=== PATIENT | female | born 1965 | race African-American/Black ===

== ENCOUNTER 2025-02-20 16:12 | Inpatient (IN) | payer MEDICAID, OTHER ==
[~2025-02-20] VITALS: Ht 167.6 cm; Wt 97.8 kg
--- NOTE | 2025-02-20 16:49 | ED.PDOC ---
HPI Comments 59 y/o F, with no prior medical history presents to the ED for CC of hypertension. Patient states, she is coming from [facility] security office where they checked her blood pressure and relayed her to the ED for a further e valuation d/t hypertensive reading. Upon arrival to the ED, patient's blood pressure read at 251/137mmHg (R) and 265/127 (L) with a blood sugar reading of 474. Patient reports, symptoms of a generalized headache onset, this morning (02/20/15) which has since, resolved. Patient denies any cardiac history, blurred vision, disorientation, urinary frequency, or excessive thirst. No other symptoms or modifying factors present at this time. Chief Complaint: High Blood Pressure Time Seen by MD: 16:40 Primary Care Provider: NONE Reviewed Notes: Nurses Notes, Medications, Allergies Allergies: Coded Allergies: NO KNOWN ALLERGIES (Unverified , 02/20/25) Information Source: Patient Mode of Arrival: Ambulatory Severity: Moderate Timing: Minutes Duration: Since onset Prehospital treatment: None Cardiac Risk Factors: None PE Risk Factors: None History of: None Modifying Factors: Nothing Associated Signs and Symptoms: None Past Medical History PAST MEDICAL HISTORY: Denies Surgical History: Hysterectomy COMPLIANCE VICE PRESIDENT History: Denies all COMPLIANCE VICE PRESIDENT Hx Family History Family History: Unknown Social History Smoker: Non-Smoker Alcohol: Denies ETOH Use Drugs: Denies Drug Use Lives In: Home Constitutional: denies: chills, diaphoresis, fatigue, fever, malaise, sweats, weakness, others EENTM: denies: blurred vision, double vision, ear bleeding, ear discharge, ear drainage, ear pain, ear ringing, eye pain, eye redness, hearing loss, mouth pain, mouth swelling, nasal discharge, nose bleeding, nose congestion, nose pain, photophobia, tearing, throat pain, throat swelling, voice changes, others Respiratory: denies: cough, hemoptysis, orthopnea, SOB at rest, shortness of breath, SOB with excertion, stridor, wheezing, others Cardiovascular: denies: chest pain, dizzy spells, diaphoresis, Dyspnea on exertion, edema, irregular heart beat, left arm pain, lightheadedness, palpitations, PND, syncope, others Gastrointestinal: denies: abdomen distended, abdominal pain, blood streaked bowels, constipated, diarrhea, dysphagia, difficulty swallowing, hematemesis, melena, nausea, poor appetite, poor fluid intake, rectal bleeding, rectal pain, vomiting, others Genitourinary: denies: abnormal vagina bleeding, burning, dyspareunia, dysuria, flank pain, frequency, hematuria, incontinence, pain, , vagina discharge, urgency, others Neurological: reports: headache; denies: dizziness, fainting, left sided numbness, left sided weakness, numbness, paresthesia, pre-existing deficit, right sided numbness, right sided weakness, seizure, speech problems, tingling, tremors, weakness, others Musculoskeletal: denies: back pain, gout, joint pain, joint swelling, muscle pain, muscle stiffness, neck pain, others Integumetry: denies: bruises, change in color, change in hair/nails, dryness, laceration, lesions, lumps, rash, wounds, others Hematologic/Lymphatic: denies: anemia, blood clots, easy bleeding, easy bruising, swollen glands, others Endocrine: denies: excessive hunger, excessive sweating, excessive thirst, excessive urination, flushing, intolerance to cold, intolerance to heat, unexplained weight gain, unexplained weight loss, others Psychiatric: denies: anxiety, bipolar disorder, depression, hopeless, panic disorder, schizophrenia, sleepless, suicidal, others All Other Systems: Reviewed and Negative Physical Exam General Appearance: No Apparent Distress, Normal HEENT: Normal ENT Inspection, Pharynx Normal, TMs Normal Neck: Full Range of Motion, Non-Tender, Normal, Normal Inspection Respiratory: Chest Non-Tender, Lungs Clear, No Accessory Muscle Use, No Respiratory Distress, Normal Breath Sounds Cardiovascular: No Edema, No Murmur, No Gallop, Normal Peripheral Pulses, Tachycardia Breast Exam: Deferred Gastrointestinal: No Organomegaly, Non Tender, No Pulsatile Mass, Normal Bowel Sounds, Soft Genitalia: Deferred Pelvic: Deferred Rectal: Deferred Extremities: No calf tenderness, Normal capillary refill, Normal inspection, Normal range of motion, Non-tender, Pedal edema (1+) Musculoskeletal : Apperance: Normal Neurologic: Alert, central office installer II-XII nml as Tested, No Motor Deficits, Normal Affect, Normal Mood, No Sensory Deficits Cerebellar Function: Normal Reflexes: Normal Skin: Dry, Normal Color, Warm Lymphatic: No Adenopathy Was a procedure done? Was a procedure done?: No CP Differential Dx Differential Diagnosis: Heart Failure, DC, Renal Failure Differential Diagnosis: CHF, HTN Essential, HTN Accelerated, Medical NonCompliance Comment DKA, HONKS, dehydration, hypertensive emergency, hypertensive urgency, malignant hypertension X-Ray, Labs, Meds, VS Vital Signs Date Time Temp Pulse Resp B/P (MAP) Pulse Ox O2 Delivery O2 Flow Rate FiO2 02/20/25 16:52 98.4 76 17 217/96 (136) 95 98.4 02/20/25 16:20 98.4 102 18 251/137 (175) 97 98.4 265/127 (173) Lab Test 02/20/25 17:35 02/20/25 17:01 02/20/25 16:37 Range/Units Urine Color Colorless Yellow Urine Clarity Clear Clear Urine pH 6.0 5.0-9.0 Urine Specific [place] 1.024 1.001-1.035 Urine Protein Trace H Negative Urine Ketones Negative Negative Urine Blood Trace H Negative /uL Urine Nitrite Negative Negative Urine Bilirubin Negative Negative Urine Urobilinogen Normal Negative mg/dL Urine Leukocyte Esterase Negative Negative /uL Urine RBC 6 0 - 4 /hpf Urine Microscopic WBC 1 0-5 /HPF Urine Squamous Epithelial Cells Few <5 /hpf Urine Bacteria None seen None Seen /hpf Urine Yeast (Budding) Occasional None Seen /hpf Urine Glucose 4+ H Normal mg/dL White Blood Count 4.6 4.4-10.8 10^3/uL Red Blood Count 4.61 4.0-5.20 10^6/uL Hemoglobin 13.7 12.2-16.2 g/dL Hematocrit 41.6 36.0-46.0 % Mean Corpuscular Volume 90.2 80.0-100.0 fL Mean Corpuscular Hemoglobin 29.8 28.0-32.0 pg Mean Corpuscular Hemoglobin Concent 33.0 32.0-36.0 g/dL Red Cell Distribution Width 12.8 11.8-14.3 % Platelet Count 254 140-450 10^3/uL Mean Platelet Volume 8.8 6.9-10.8 fL Neutrophils (%) (Auto) 49.6 37.0-80.0 % Lymphocytes (%) (Auto) 37.8 10.0-50.0 % Monocytes (%) (Auto) 8.9 0.0-12.0 % Eosinophils (%) (Auto) 3.0 0.0-7.0 % Basophils (%) (Auto) 0.7 0.0-2.0 % Neutrophils # (Auto) 2.3 1.6-8.6 10 ^3/uL Lymphocytes # (Auto) 1.8 0.4-5.4 10 ^3/uL Monocytes # (Auto) 0.4 0-1.3 10 ^3/uL Eosinophils # (Auto) 0.1 0-0.8 10 ^3/uL Basophils # (Auto) 0 0-0.2 10 ^3/uL Nucleated Red Blood Cells 0.2 % Sodium Level 135 L 136-145 mmol/L Potassium Level 4.3 3.5-5.1 mmol/L Chloride Level 98 98-107 mmol/L Carbon Dioxide Level 30 20-31 mmol/L Anion Gap 7 5-15 Blood Urea Nitrogen 18 9-23 mg/dL Creatinine 1.22 H 0.550-1.02 mg/dL Glomerular Filtration Rate Calc 52 >90 mL/min BUN/Creatinine Ratio 14.8 10.0-20.0 Serum Glucose 566 *H 74-106 mg/dL Calcium Level 9.7 8.7-10.4 mg/dL Troponin I High Sensitivity 12 </=34 ng/L POC Glucose 474 *H 70-106 mg/dl Current Medications Medications (Trade) Dose Ordered Sig/Eloisa Route Start Time Stop Time Status Last Admin Sodium Chloride 1,000 ml @ 125 mls/hr Q8H ONCE IV 02/20/25 17:00 02/21/25 00:59 02/20/25 17:26 Insulin Human Regular (InsuLIN R) 8 units ONCE ONCE SC 02/20/25 17:45 02/20/25 17:46 DC 02/20/25 17:[address] [address] Ph: [phone] DIAGNOSTIC IMAGING Diagnostic Imaging Report : [id number] Signed PATIENT: PEEWEE PURCELL MACCT: [id number] UNIT: [id number] : 1965 LOC: ER ROOM / BED: / AGE / SEX: 59 / F ADM STATUS: REG ER SERVICE [id number] ORDERING PHYSICIAN: MARCUS WALSH MD PROCEDURE(s): CXRP - CHEST PORTABLE REASON: r/o chf ORDER NUMBER(s): [id number], ACCESSION NUMBER(s): [id number] AP portable chest CLINICAL INDICATION: r/o chf FINDINGS: Heart size is slightly prominent. Aorta tortuous. No infiltrates or effusions. No bony thoracic abnormalities. IMPRESSION: 1. No acute cardiopulmonary pathology ATED BY: LISA CALHOUN MD DICTATED DATE/TIME: 02/20/251701 SIGNED BY: LISA CALHOUN MD SIGNED DATE/TIME: 02/20/251701 CC: Time of 1ST Reevaluation: 17:20 Reevaluation 1ST: Unchanged Patient Education/Counseling: Diagnosis, Treatment Family Education/Counseling: No Family Present Additional Information The following tests were ordered, and results were reviewed by me: TROPONIN X1, CBC, BMP, CXR I reviewed and agreed with the following test results read by other providers: CXR I discussed treatment and results with medical personnel and: patient Comprehensive systems review obtained and negative except for what is stated in the HPI. Departure 1 Departure Time of Disposition: 18:29 Impression: Primary Impression: Hypertensive emergency Additional Impressions: Uncontrolled diabetes mellitus Qualified Codes: E13.65 - Other specified diabetes mellitus with hyperglycemia Renal insufficiency Disposition: ADMITTED INPATIENT Admit to: ICU Condition: Serious Discharged With: Self Critical Care Note Critical Care Time?: Yes (55 min-critical care time only) Critical care comment: due to concerns for patient's condition deteriorating, the care required my highest level of attention and readiness to intervene. i assessed the patient's condition, ordered the proper tests and treatments, reassessed for response and reviewed the results. i communicated with medical personnel and formulated a plan of care. total critical care time does not include any procedures Stability Stability form required: No Heart Score Heart Score: Heart Score Response (Comments) Value History N/A 0 EKG N/A 0 Age N/A 0 Risk Factors N/A 0 Troponin N/A 0 Total 0 I personally scribed for MARCUS WALSH MD ([email or web address]) on 02/20/25 at 16:49. Electronically submitted by Xenia Lozano ([email or web address]). I personally scribed for MARCUS WALSH MD ([email or web address]) on 02/20/25 at 16:55. Electronically submitted by Xenia Lozano ([email or web address]). I personally scribed for MARCUS WALSH MD ([facility]) on 02/20/25 at 16:58. Electronically submitted by Xenia Lozano ([email or web address]). I personally scribed for MARCUS WALSH MD ([facility] on 02/20/25 at 17:52. Chloé ctronically submitted by Xenia Lozano ([email or web address]). MARCUS WALSH MD February 20, 2025 16:49
--- NOTE | 2025-02-20 17:04 | DVH ---
AP portable chest CLINICAL INDICATION: r/o chf FINDINGS: Heart size is slightly prominent. Aorta tortuous. No infiltrates or effusions. No bony tho racic abnormalities. IMPRESSION: 1. No acute cardiopulmonary pathology
[2025-02-20 17:10] LABS: Basophils # (auto) 0 10 ^3/uL (0-0.2); Basophils % (auto) 0.7 % (0.0-2.0); Eosinophils # (auto) 0.1 10 ^3/uL (0-0.8); Hematocrit 41.6 % (36.0-46.0); Hemoglobin 13.7 g/dL (12.2-16.2); Lymphocytes # (auto) 1.8 10 ^3/uL (0.4-5.4); Lymphocytes % (auto) 37.8 % (10.0-50.0); Mean Corpuscular Hemoglobin 29.8 pg (28.0-32.0); Mean Corpuscular Volume 90.2 fL (80.0-100.0); Monocytes # (auto) 0.4 10 ^3/uL (0-1.3); Monocytes % (auto) 8.9 % (0.0-12.0); Neutrophils # (auto) 2.3 10 ^3/uL (1.6-8.6); Neutrophils % (auto) 49.6 % (37.0-80.0); Nucleated Red Blood Cells % 0.2 %; Platelet Count (auto) 254 10^3/uL (140-450); Red Blood Cells 4.61 10^6/uL (4.0-5.20); Red Cell Distribution Width 12.8 % (11.8-14.3); White Blood Cell 4.6 10^3/uL (4.4-10.8)
[2025-02-20 17:20] LABS: Chloride 98 mmol/L (98-107); Potassium 4.3 mmol/L (3.5-5.1)
[2025-02-20 17:21] LABS: Anion Gap 7 (5-15); Calcium 9.7 mg/dL (8.7-10.4); Carbon Dioxide 30 mmol/L (20-31)
[2025-02-20 17:26] LABS: BUN/Creatinine Ratio 14.8 (10.0-20.0); Blood Urea Nitrogen 18 mg/dL (9-23)
[2025-02-20] MEDS: SODIUM CHLORIDE 0.9% 1,000 ML IV ONE (17:26)
[2025-02-20 17:29] LABS: Sodium 135 mmol/L (136-145)
[2025-02-20 17:30] LABS: Glucose 566 mg/dL (74-106)
[2025-02-20 17:36] LABS: Urine Bacteria None Seen /hpf (None Seen)
[2025-02-20] MEDS: InsuLIN REG 1unit/0.01ml Soln (100units/ml) SC ONE (17:46)
[2025-02-20 17:49] LABS: Urine Blood TRACE /uL (Negative); Urine Budding Yeast OCCASIONAL /hpf (None Seen); Urine Clarity Clear (Clear); Urine Color Colorless (Yellow); Urine Protein, UAD TRACE (Negative); Urine Specific Gravity 1.024 (1.001-1.035); Urine Squamous Epithelial Cell FEW /hpf (<5); Urine Urobilinogen Normal (Negative); Urine WBC 1 /HPF (0-5)
[2025-02-20] MEDS ORDERED: MORPHINE SULFATE INJ 2 MG/ml SYRG IV PRN ×2 (19:00→19:15)
[2025-02-20] MEDS ORDERED: NITROGLYCERIN 0.4 MG SL TAB SL PRN ×2 (19:00→19:15)
[2025-02-20] MEDS ORDERED: DEXTROSE (50%) 50ML SYRG IV PRN (19:00)
[2025-02-20 19:39] VITALS: PULSE 73; RESP 18; O2SAT 97
[2025-02-20] MEDS: ACCU-CHEK COMFORT CURVE STRIP VI SCH (21:31)
[2025-02-20] MEDS: LOSARTAN POTASSIUM 25 MG TAB PO ONE (21:31)
[2025-02-20] MEDS: InsuLIN REG 1unit/0.01ml Soln (100units/ml) SC SCH (21:38)
[2025-02-20 22:19] VITALS: BP 170/103; PULSE 71; RESP 18; TEMP 98.2; O2SAT 98
[2025-02-21] VITALS (8 sets, daily range): BP systolic 134–192; BP diastolic 58–79; PULSE 56–77; RESP 12–20; TEMP 97.5–98.1; O2SAT 96–98
--- NOTE | 2025-02-21 00:09 | DVHHP2 ---
History of Present Illness Reason for Visit: High blood pressure History of Present Illness 59-year-old female presents for evaluation of high blood pressure. Patient was seen at [facility] security office where she had her vital signs taken. She was advised to present to the nearest emergency department due to elevated blood pressure. She reports mild dizziness. Denies chest pain, headache or shortness for breath. Denies blurred vision. She is currently not taking any medications. Denies any medical problems. Past Medical History Denies Past Surgical History Hysterectomy Family History Noncontributory Smoke: No ALCOHOL: none Drugs: None Lives: with Family Review of Systems Review of Systems Review of systems are currently negative otherwise addressed in HPI. Allergies: Coded Allergies: NO KNOWN ALLERGIES (Unverified , 02/20/25) Medications Current Medications Medications Dose Ordered Sig/Eloisa Route Start Time Stop Time Status Last Admin Dose Admin Hydralazine HCl 10 mg Q6HP PRN IV 02/20/25 19:00 Losartan Potassium 25 mg DAILY PO 02/21/25 10:00 Aspirin 81 mg DAILY PO 02/21/25 10:00 Diagnostic Test (Pha) 1 strip IQ4HR 02/20/25 20:00 02/20/25 21:31 1 STRIP Insulin Human Regular IQ4HR SC 02/20/25 20:00 02/20/25 21:38 10 UNITS Dextrose 50 ml UD PRN IV 02/20/25 19:00 Ondansetron HCl 4 mg Q4HP PRN IV 02/20/25 19:15 Acetaminophen 650 mg Q6HP PRN PO 02/20/25 19:15 Morphine Sulfate 2 mg Q30M PRN IV 02/20/25 19:15 Nitroglycerin 0.4 mg Q5MINP PRN SL 02/20/25 19:15 Exam Vital Signs Vital Signs Date Time Temp Pulse Resp B/P (MAP) Pulse Ox O2 Delivery O2 Flow Rate FiO2 02/20/25 22:19 98.2 71 18 170/103 (125) 98 98.2 02/20/25 22:19 Room Air* 0 21 Exam Gen: 59-year-old female in mild distress, obese Skin: Warm, dry, normal color and texture, no rash. HEENT: Normocephalic atraumatic, mucous membranes moist and pink. Neck: Cervical and supraclavicular nodes normal without enlargement, trachea is midline, thyroid gland is normal without masses. Pulmonary: Clear to auscultation and percussion bilaterally. Cardiac: Regular rate and rhythm. No murmur Abdomen: Soft, nontender, nondistended, bowel sounds present all 4 quadrants, no guarding, no rigidity, no organomegaly. Extremities: No cyanosis, clubbing, no edema Neuro: Cranial nerves II through XII grossly intact, normal affect and speech, no focal motor deficits. Labs/Xrays ORDERING PHYSICIAN: MARCUS WALSH MD PROCEDURE(s): CXRP - CHEST PORTABLE REASON: r/o chf ORDER NUMBER(s): [id number], ACCESSION NUMBER(s): [id number] AP portable chest CLINICAL INDICATION: r/o chf FINDINGS: Heart size is slightly prominent. Aorta tortuous. No infiltrates or effusions. No bony thoracic abnormalities. IMPRESSION: 1. No acute cardiopulmonary pathology Labs Test 02/20/25 21:34 02/20/25 17:35 02/20/25 17:01 Range/Units POC Glucose 362 H 70-106 mg/dl Urine Color Colorless Yellow Urine Clarity Clear Clear Urine pH 6.0 5.0-9.0 Urine Specific [place] 1.024 1.001-1.035 Urine Protein Trace H Negative Urine Ketones Negative Negative Urine Blood Trace H Negative /uL Urine Nitrite Negative Negative Urine Bilirubin Negative Negative Urine Urobilinogen Normal Negative mg/dL Urine Leukocyte Esterase Negative Negative /uL Urine RBC 6 0 - 4 /hpf Urine Microscopic WBC 1 0-5 /HPF Urine Squamous Epithelial Cells Few <5 /hpf Urine Bacteria None seen None Seen /hpf Urine Yeast (Budding) Occasional None Seen /hpf Urine Glucose 4+ H Normal mg/dL White Blood Count 4.6 4.4-10.8 10^3/uL Red Blood Count 4.61 4.0-5.20 10^6/uL Hemoglobin 13.7 12.2-16.2 g/dL Hematocrit 41.6 36.0-46.0 % Mean Corpuscular Volume 90.2 80.0-100.0 fL Mean Corpuscular Hemoglobin 29.8 28.0-32.0 pg Mean Corpuscular Hemoglobin Concent 33.0 32.0-36.0 g/dL Red Cell Distribution Width 12.8 11.8-14.3 % Platelet Count 254 140-450 10^3/uL Mean Platelet Volume 8.8 6.9-10.8 fL Neutrophils (%) (Auto) 49.6 37.0-80.0 % Lymphocytes (%) (Auto) 37.8 10.0-50.0 % Monocytes (%) (Auto) 8.9 0.0-12.0 % Eosinophils (%) (Auto) 3.0 0.0-7.0 % Basophils (%) (Auto) 0.7 0.0-2.0 % Neutrophils # (Auto) 2.3 1.6-8.6 10 ^3/uL Lymphocytes # (Auto) 1.8 0.4-5.4 10 ^3/uL Monocytes # (Auto) 0.4 0-1.3 10 ^3/uL Eosinophils # (Auto) 0.1 0-0.8 10 ^3/uL Basophils # (Auto) 0 0-0.2 10 ^3/uL Nucleated Red Blood Cells 0.2 % Sodium Level 135 L 136-145 mmol/L Potassium Level 4.3 3.5-5.1 mmol/L Chloride Level 98 98-107 mmol/L Carbon Dioxide Level 30 20-31 mmol/L Anion Gap 7 5-15 Blood Urea Nitrogen 18 9-23 mg/dL Creatinine 1.22 H 0.550-1.02 mg/dL Glomerular Filtration Rate Calc 52 >90 mL/min BUN/Creatinine Ratio 14.8 10.0-20.0 Serum Glucose 566 *H 74-106 mg/dL Calcium Level 9.7 8.7-10.4 mg/dL Troponin I High Sensitivity 12 </=34 ng/L Thyroid Stimulating Hormone (TSH) 0.97 0.55-4.78 uIU/mL Assessment/Plan Assessment/Plan Assessment Hypertensive emergency Uncontrolled diabetes mellitus Obesity Plan Admit the patient to telemetry to the hospitalist as needed antihypertensives Echocardiogram pending Diabetic teaching Continue treatment per orders. Plan discussed with: Patient My Orders Orders - MERON WEST Procedure Category Date Status Time Admit ADMIT 02/20/25 Transmitted 18:52 Stat Ekg For Chest ELSA 02/20/25 In Process Pain 18:52 Notify Of Changes ELSA 02/20/25 In Process From Base 18:52 Wine Pasteurizer For ELSA 02/20/25 In Process 24 Hours 18:52 Emergency Dysrhythmia ELSA 02/20/25 In Process Protocol 18:52 Rhythm Strips Once ELSA 02/20/25 In Process Every Shift 18:52 Oxygen By Nasal RT 02/20/25 Transmitted Cannula 18:52 Consistent DIET 02/21/25 Transmitted Carb(Ccho)Diabetes Breakfast Hydralazine Injection PHA 02/20/25 In Process (Apresoline Inject 19:00 Losartan Tablet PHA 02/21/25 In Process (Cozaar Tablet) 10:00 Aspirin Tablet PHA 02/21/25 In Process 10:00 Basic Metabolic Panel LAB 02/21/25 Logged 04:00 Glucose Blood PHA 02/20/25 In Process (Accu-Chek Comfort 20:00 Insulin R (Human) PHA 02/20/25 In Process (Insulin R) 20:00 Dextrose 50% Syringe PHA 02/20/25 In Process 19:00 Ondansetron Hcl PHA 02/20/25 In Process (Zofran) 19:15 Echo 2d Mode Cardiac US 02/20/25 Logged DOP 19:01 Condition: Fair ELSA 02/20/25 In Process 19:01 Acetaminophen Tablet PHA 02/20/25 In Process (Tylenol Tablet) 19:15 Bedrest With Bathroom ELSA 02/20/25 In Process Privileg 19:01 Morphine Sulfate PHA 02/20/25 In Process Injection 19:15 Nitroglycerin PHA 02/20/25 In Process Sublingual (Ntrostat 19:15 Date of Service: February 20, 2025 Billing Provider: MERON WEST Common Visit Codes: [id number] INP/OBS CARE (HIGH) MERON WEST February 21, 2025 00:09
[2025-02-21 06:35] LABS: Chloride 104 mmol/L (98-107); Sodium 143 mmol/L (136-145)
[2025-02-21 06:36] LABS: Anion Gap 9 (5-15); Calcium 9.1 mg/dL (8.7-10.4); Carbon Dioxide 30 mmol/L (20-31)
[2025-02-21 06:41] LABS: BUN/Creatinine Ratio 19.3 (10.0-20.0); Blood Urea Nitrogen 16 mg/dL (9-23); Glucose 84 mg/dL (74-106); Triglycerides 85 mg/dL (< 150)
[2025-02-21 06:42] LABS: Potassium 3.3 mmol/L (3.5-5.1)
[2025-02-21 06:51] LABS: Cholesterol 219 mg/dL (< 200); HDL Cholesterol 79 mg/dL (40-59); LDL Cholesterol 126 mg/dL (< 100)
[2025-02-21] MEDS: ASPirin 81 mg TAB PO SCH (10:04)
[2025-02-21] MEDS: LOSARTAN POTASSIUM 25 MG TAB PO SCH ×2 (10:04→17:19)
[2025-02-21] MEDS: hydrALAZINE HCL 20 MG/ML VL IV PRN (12:34)
--- NOTE | 2025-02-21 14:52 | DVHPN2 ---
Reviewed: Care Plan, H&P, Labs, Medications, Previous Orders, Radiology Changes from previous H/P or p: No Changes Objective Vitals Vital Signs Date Time Temp Pulse Resp B/P (MAP) Pulse Ox O2 Delivery O2 Flow Rate FiO2 02/21/25 13:14 98.0 56 192/79 (116) 97 98.0 02/21/25 09:00 12 02/20/25 22:19 Room Air* 0 21 Intake/Output Intake and Output 02/21/25 07:00 Intake Total 225 ml Output Total 75 ml Balance 150 ml Intake Oral 100 ml IV Total 125 ml Output Urine Total 75 ml Medications Current Medications Medications Dose Ordered Sig/Eloisa Route Start Time Stop Time Status Last Admin Dose Admin Hydralazine HCl 10 mg Q6HP PRN IV 02/20/25 19:00 02/21/25 12:34 10 MG Losartan Potassium 25 mg DAILY PO 02/21/25 10:00 02/21/25 10:04 25 MG Aspirin 81 mg DAILY PO 02/21/25 10:00 02/21/25 10:04 81 MG Diagnostic Test (Pha) 1 strip IQ4HR 02/20/25 20:00 02/21/25 12:33 1 STRIP Insulin Human Regular IQ4HR SC 02/20/25 20:00 02/21/25 12:39 4 UNITS Dextrose 50 ml UD PRN IV 02/20/25 19:00 Ondansetron HCl 4 mg Q4HP PRN IV 02/20/25 19:15 Acetaminophen 650 mg Q6HP PRN PO 02/20/25 19:15 Morphine Sulfate 2 mg Q30M PRN IV 02/20/25 19:15 Nitroglycerin 0.4 mg Q5MINP PRN SL 02/20/25 19:15 Laboratory Results Laboratory Tests 02/20/25 17:01 02/21/25 04:20 Chemistry Test 02/20/25 17:01 02/21/25 04:20 Calcium Level 9.7 mg/dL (8.7-10.4) 9.1 mg/dL (8.7-10.4) Lipid panel Test 02/21/25 04:20 Cholesterol Level 219 mg/dL (< 200) H HDL Cholesterol 79 mg/dL (40-59) H Triglycerides Level 85 mg/dL (< 150) HgA1c, TSH Test 02/20/25 17:01 02/21/25 04:20 Thyroid Stimulating Hormone (TSH) 0.97 uIU/mL (0.55-4.78) Hemoglobin A1c > 14.0 % A1C (<5.7) H Urinalysis Test 02/20/25 17:35 Urine Color Colorless (Yellow) Urine Clarity Clear (Clear) Urine pH 6.0 (5.0-9.0) Urine Specific [place] 1.024 (1.001-1.035) Urine Protein Trace (Negative) H Urine Ketones Negative (Negative) Urine Blood Trace /uL (Negative) H Urine Nitrite Negative (Negative) Urine Bilirubin Negative (Negative) Urine Urobilinogen Normal mg/dL (Negative) Urine Leukocyte Esterase Negative /uL (Negative) Urine RBC 6 /hpf (0 - 4) Urine Microscopic WBC 1 /HPF (0-5) Urine Squamous Epithelial Cells Few /hpf (<5) Urine Bacteria None seen /hpf (None Seen) Urine Yeast (Budding) Occasional /hpf (None Urine Glucose 4+ mg/dL (Normal) H Labs and/or images reviewed: Labs reviewed by me, Image(s) reviewed by me Assessment/Plan Assessment/Plan Hypertensive emergency: Metoprolol hydralazine p.r.n., echocardiogram urine drug screen renal arterial ultrasound cardiology consult with Dr. Aguero Hypercholesterolemia: Lipitor Uncontrolled Diabetes: Insulin sliding scale Plan discussed with: Patient My Orders Orders - JEFF TATE MD Procedure Category Date Status Time * Cardiology Consult CONS 02/21/25 Transmitted 14:46 Metoprolol Tartrate PHA 02/21/25 Logged Tablet (Lopressor Ta 22:00 Renal Artery Comp US 02/21/25 Logged 14:[address] 02/21/25 Transmitted 14:50 Drug Screen LAB 02/21/25 Transmitted 14:50 Date of Service: February 21, 2025 Billing Provider: JEFF TATE MD Common Visit Codes: [id number] INP/OBS CARE(HIGH) JEFF TATE MD February 21, 2025 14:52
--- NOTE | 2025-02-21 15:23 | DVH ---
CLINICAL INFORMATION: 59 years old, Female; HYPERTENSIVE EMERGENCY. TECHNIQUE: Axial imaging was obtained through the brain without contrast. Coronal and sagittal reform atted images were obtained, reviewed, and stored. Images were reviewed in brain and bone windows. Al l CT scans at this medical facility are performed using dose modulation techniques as appropriate to a performed exam including the following: Automated exposure control was utilized; adjustment of the MA and/or KV according to patient size; and use of iterative reconstruction technique. CTDIvol = 52.2 6 mGy DLP = 924.28 mGy-cm COMPARISON: None FINDINGS: There is no acute intracranial hemorrhage. No mass effect or midline shift. 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 The ventricles and sulci are otherwise within normal limits in size for age. Basal cisterns are patent. The calvarium is unremarkable. Minimal mucosal thickening of the paranas al sinuses. Mastoid air cells are clear. IMPRESSION: 1. No CT evidence of acute intracranial abnormality. 2. Nonacute findings as described above.
[2025-02-21] MEDS: ACCU-CHEK COMFORT CURVE STRIP VI SCH (16:00)
--- NOTE | 2025-02-21 16:06 | DVHINCON2 ---
Date Seen: February 21, 2025 Referring Physician MD Saul Reason for Consultation Hypertension History of Present Illness This is a 59-year-old female with past medical history of gestational diabetes and neuropathy referred from [facility] due to high blood pressure. Per patient, yesterday upon visit of [facility] [employer] [facility] (had applied for disability) she was found to have high blood pressure and referred to the hospital. She reports mild headache and generalized weakness. She denies chest pain, shortness of breath, nausea, vomiting, blurry vision, or any recent sensory/motor deficits. PMHx: Gestational diabetes mellitus and neuropathy PSHx: Hysterectomy Family history: 2 sisters has hypertension, mother had diabetes Social history: Denies smoking or any other drug use Home medication: Does not take any medicine Allergic history: No known allergy Patient seen and examined at bedside. Patient does not have active complaint at the moment. Past Medical History Per H&P Past Surgical History Per H&P Family History: Patient reports no known family medical history. Family History Per H&P Social History Per H&P Allergies: Coded Allergies: NO KNOWN ALLERGIES (Unverified , 02/20/25) Home Meds Per H&P Current Medications Current Medications Medications (Trade) Dose Ordered Sig/Eloisa Route PRN Reason Start Time Stop Time Status Last Admin Nitroglycerin (Ntrostat Sublingual) 0.4 mg Q5MINP PRN SL FOR CHEST PAIN 02/20/25 19:00 02/20/25 18:57 DC Morphine Sulfate 2 mg Q30M PRN IV FOR CHEST PAIN 02/20/25 19:00 02/20/25 18:57 DC Hydralazine HCl (Apresoline Injection) 10 mg Q6HP PRN IV SBP>150 02/20/25 19:00 02/21/25 12:34 Losartan Potassium (Cozaar Tablet) 25 mg DAILY PO 02/21/25 10:00 02/21/25 10:04 Aspirin 81 mg DAILY PO 02/21/25 10:00 02/21/25 10:04 Diagnostic Test (Pha) (Accu-Chek Comfort Curve T) 1 strip IQ4HR 02/20/25 20:00 02/21/25 12:33 Insulin Human Regular (InsuLIN R) IQ4HR SC 02/20/25 20:00 02/21/25 15:20 DC 02/21/25 12:39 Dextrose 50 ml UD PRN IV Blood Sugar LESS THAN 60 02/20/25 19:00 Ondansetron HCl (Zofran) 4 mg Q4HP PRN IV NAUSEA / VOMITING 02/20/25 19:15 Acetaminophen (Tylenol Tablet) 650 mg Q6HP PRN PO PAIN SCALE 1-3 OR TEMP>100.4 02/20/25 19:15 Morphine Sulfate 2 mg Q30M PRN IV FOR CHEST PAIN 02/20/25 19:15 Nitroglycerin (Ntrostat Sublingual) 0.4 mg Q5MINP PRN SL FOR CHEST PAIN 02/20/25 19:15 Metoprolol Tartrate (Lopressor Tablet) 50 mg BID PO 02/21/25 22:00 Diagnostic Test (Pha) (Accu-Chek Comfort Curve T) 1 strip IQ4HR 02/21/25 16:00 Insulin Human Regular (InsuLIN R) IQ4HR SC 02/21/25 16:00 Review of Systems Per H&P Vital Signs Vital Signs Date Time Temp Pulse Resp B/P (MAP) Pulse Ox O2 Delivery O2 Flow Rate FiO2 02/21/25 13:14 98.0 56 192/79 (116) 97 98.0 02/21/25 09:00 12 02/20/25 22:19 Room Air* 0 21 Physical Exam General Appearance: Alert, Oriented X3, Cooperative, No acute distress HEENT: Atraumatic, PERRLA, EOMI, Mucous membrane moist/pink Respiratory: Clear to auscultation, Normal air movement Cardiovascular: Regular rate, Normal S1, Normal S2, No murmurs, no chest wall tenderness Abdominal: Normal bowel sounds, Soft, No tenderness, No hepatospenomegaly, No masses Extremities: No clubbing, No cyanosis, No edema, Normal pulses, No tenderness/swelling Skin: No rashes, No breakdown, No significant lesion Neuro: Normal gait, Normal speech, Strength at 5/5 X4 ext, Normal tone, Sensation intact, Cranial nerves 3-12 NL, Reflexes 2+ Psych/Mental Status: Mental status NL, Mood NL Labs/Diagnostic Data Labs Test 02/21/25 12:02 02/21/25 04:20 02/20/25 17:35 02/20/25 17:01 Range/Units POC Glucose 228 H 70-106 mg/dl Sodium Level 143 # 136-145 mmol/L Potassium Level 3.3 L 3.5-5.1 mmol/L Chloride Level 104 98-107 mmol/L Carbon Dioxide Level 30 20-31 mmol/L Anion Gap 9 5-15 Blood Urea Nitrogen 16 9-23 mg/dL Creatinine 0.83 # 0.550-1.02 mg/dL Glomerular Filtration Rate Calc 82 >90 mL/min BUN/Creatinine Ratio 19.3 10.0-20.0 Serum Glucose 84 74-106 mg/dL Hemoglobin A1c > 14.0 H <5.7 % A1C Calcium Level 9.1 8.7-10.4 mg/dL Triglycerides Level 85 < 150 mg/dL Cholesterol Level 219 H < 200 mg/dL LDL Cholesterol 126 H < 100 mg/dL HDL Cholesterol 79 H 40-59 mg/dL Urine Color Colorless Yellow Urine Clarity Clear Clear Urine pH 6.0 5.0-9.0 Urine Specific [place] 1.024 1.001-1.035 Urine Protein Trace H Negative Urine Ketones Negative Negative Urine Blood Trace H Negative /uL Urine Nitrite Negative Negative Urine Bilirubin Negative Negative Urine Urobilinogen Normal Negative mg/dL Urine Leukocyte Esterase Negative Negative /uL Urine RBC 6 0 - 4 /hpf Urine Microscopic WBC 1 0-5 /HPF Urine Squamous Epithelial Cells Few <5 /hpf Urine Bacteria None seen None Seen /hpf Urine Yeast (Budding) Occasional None Seen /hpf Urine Glucose 4+ H Normal mg/dL White Blood Count 4.6 4.4-10.8 10^3/uL Red Blood Count 4.61 4.0-5.20 10^6/uL Hemoglobin 13.7 12.2-16.2 g/dL Hematocrit 41.6 36.0-46.0 % Mean Corpuscular Volume 90.2 80.0-100.0 fL Mean Corpuscular Hemoglobin 29.8 28.0-32.0 pg Mean Corpuscular Hemoglobin Concent 33.0 32.0-36.0 g/dL Red Cell Distribution Width 12.8 11.8-14.3 % Platelet Count 254 140-450 10^3/uL Mean Platelet Volume 8.8 6.9-10.8 fL Neutrophils (%) (Auto) 49.6 37.0-80.0 % Lymphocytes (%) (Auto) 37.8 10.0-50.0 % Monocytes (%) (Auto) 8.9 0.0-12.0 % Eosinophils (%) (Auto) 3.0 0.0-7.0 % Basophils (%) (Auto) 0.7 0.0-2.0 % Neutrophils # (Auto) 2.3 1.6-8.6 10 ^3/uL Lymphocytes # (Auto) 1.8 0.4-5.4 10 ^3/uL Monocytes # (Auto) 0.4 0-1.3 10 ^3/uL Eosinophils # (Auto) 0.1 0-0.8 10 ^3/uL Basophils # (Auto) 0 0-0.2 10 ^3/uL Nucleated Red Blood Cells 0.2 % Troponin I High Sensitivity 12 </=34 ng/L Thyroid Stimulating Hormone (TSH) 0.97 0.55-4.78 uIU/mL Assessment Hypertensive urgency Uncontrolled diabetes mellitus with hyperglycemia Diabetic neuropathy Dyslipidemia Hypokalemia Obesity * EKGs shows sinus rhythm with nonspecific ST segment changes * Trop I is normal limits Plan/Recommendation (Case discussed with Dr. Aguero) * Losartan 75 mg daily, amlodipine 10 mg daily * Hydralazine 10 mg IV p.r.n. * Check echocardiogram * Keep K above 4, and Mag above 2 * We follow the patient * Rest of plan, per primary team Thank you for allowing us to participate in this patient's care. Please call if you have any questions or concerns. Plan discussed with: Patient, Other (RN) NYHA Physical activity limitations: NA Date of Service: February 21, 2025 Billing Provider: NIKHIL AGUERO Sr., MD Cardiology Common Codes: [id number] INP/OBS CARE (High) PRIYANKA CHRISTINA RESDIENT February 21, 2025 16:06
[2025-02-21 17:00] LABS: Amphetamine Screen, Urine Neg (NEGATIVE); Barbiturate Scree,Urine Neg (NEGATIVE); Benzodiazephine Screen, Urine Neg (NEGATIVE); Cannabinoid Screen, Urine Neg (NEGATIVE); Cocaine Screen, Urine Neg (NEGATIVE); Opiate Scree,Urine Neg (NEGATIVE); Phencyclidine Screen, Urine Neg (NEGATIVE)
[2025-02-21] MEDS: POTASSIUM EFFERVESENT TAB 25 MEQ PO ONE (17:14)
[2025-02-21] MEDS: amLODIPine BESYLATE 5 MG TAB PO ONE (17:18)
[2025-02-21] MEDS: InsuLIN REG 1unit/0.01ml Soln (100units/ml) SC SCH (17:23)
[2025-02-21] MEDS ORDERED: METOPROLOL TARTRATE 50 MG TAB PO SCH (22:00)
[2025-02-22] VITALS (8 sets, daily range): BP systolic 133–176; BP diastolic 64–89; PULSE 64–78; RESP 17–19; TEMP 97–98; O2SAT 94–100
[2025-02-22] MEDS: ACETAMINOPHEN 325 MG TAB PO PRN (09:29)
[2025-02-22] MEDS: amLODIPine BESYLATE 5 MG TAB PO SCH (09:31)
--- NOTE | 2025-02-22 10:09 | DVHPN2 ---
Reviewed: Care Plan, H&P, Labs, Medications, Previous Orders, Radiology Changes from previous H/P or p: No Changes Objective Vitals Vital Signs Date Time Temp Pulse Resp B/P (MAP) Pulse Ox O2 Delivery O2 Flow Rate FiO2 02/22/25 09:31 163/89 02/22/25 09:00 97.8 68 19 99 97.8 02/22/25 08:00 Room Air* 0 21 Intake/Output Intake and Output 02/22/25 07:00 # Voids 1 Medications Current Medications Medications Dose Ordered Sig/Eloisa Route Start Time Stop Time Status Last Admin Dose Admin Hydralazine HCl 10 mg Q6HP PRN IV 02/20/25 19:00 02/22/25 05:04 10 MG Aspirin 81 mg DAILY PO 02/21/25 10:00 02/22/25 09:31 81 MG Diagnostic Test (Pha) 1 strip IQ4HR 02/20/25 20:00 02/22/25 07:54 1 STRIP Dextrose 50 ml UD PRN IV 02/20/25 19:00 Ondansetron HCl 4 mg Q4HP PRN IV 02/20/25 19:15 Acetaminophen 650 mg Q6HP PRN PO 02/20/25 19:15 02/22/25 09:29 650 MG Morphine Sulfate 2 mg Q30M PRN IV 02/20/25 19:15 Nitroglycerin 0.4 mg Q5MINP PRN SL 02/20/25 19:15 Insulin Human Regular IQ4HR SC 02/21/25 16:00 02/21/25 23:31 2 UNITS Losartan Potassium 75 mg DAILY PO 02/21/25 16:15 02/22/25 09:30 75 MG Amlodipine Besylate 10 mg DAILY PO 02/22/25 10:00 02/22/25 09:31 10 MG Laboratory Results Laboratory Tests 02/20/25 17:01 02/21/25 04:20 Chemistry Test 02/21/25 16:08 Magnesium Level 1.9 mg/dL (1.6-2.6) Cardiac Markers Test 02/21/25 16:08 B-Type Natriuretic Peptide 33.46 pg/mL (0-100) Urinalysis Test 02/20/25 17:35 Urine Color Colorless (Yellow) Urine Clarity Clear (Clear) Urine pH 6.0 (5.0-9.0) Urine Specific [place] 1.024 (1.001-1.035) Urine Protein Trace (Negative) H Urine Ketones Negative (Negative) Urine Blood Trace /uL (Negative) H Urine Nitrite Negative (Negative) Urine Bilirubin Negative (Negative) Urine Urobilinogen Normal mg/dL (Negative) Urine Leukocyte Esterase Negative /uL (Negative) Urine RBC 6 /hpf (0 - 4) Urine Microscopic WBC 1 /HPF (0-5) Urine Squamous Epithelial Cells Few /hpf (<5) Urine Bacteria None seen /hpf (None Seen) Urine Yeast (Budding) Occasional /hpf (None Urine Glucose 4+ mg/dL (Normal) H Labs and/or images reviewed: Labs reviewed by me, Image(s) reviewed by me Assessment/Plan Assessment/Plan Hypertensive emergency: Cardiology consult by Dr. Aguero appreciated placed on amlodipine 10 mg p.o. daily and losartan 75 mg p.o. daily Hypercholesterolemia cholesterol 219, new diagnosis: Start Lipitor Uncontrolled type 2 Diabetes A1c 14, new diagnosis: Insulin aggressive sliding scale, diabetic education CT head negative renal arterial ultrasound result pending, echocardiogram result pending urine drug screen negative Noncompliance patient has not seen any Dr recently [facility] service consult for new PCP Plan discussed with: Patient My Orders Orders - JEFF TATE MD Procedure Category Date Status Time * Cardiology Consult CONS 02/21/25 Transmitted 14:[address] 02/21/25 Resulted 14:50 Renal Artery Comp US 02/22/25 Taken 08:00 Insulin R (Human) PHA 02/21/25 In Process (Insulin R) 16:00 Date of Service: February 22, 2025 Billing Provider: JEFF TATE MD Common Visit Codes: [id number] INP/OBS CARE(HIGH) JEFF TATE MD February 22, 2025 10:09
--- NOTE | 2025-02-22 12:15 | DVH ---
ULTRASOUND RENAL CLINICAL INDICATION: HTN TECHNIQUE: Real-time sonographic, duplex, and color Doppler images of the kidneys were obtained. FINDINGS: Resistive indices within normal limits. Mild bilateral hydronephrosis IMPRESSION: Mild bilateral hydronephrosis. No evidence for renal artery stenosis.
--- NOTE | 2025-02-22 14:44 | DVHPNRES ---
Progress Note Date Seen: February 22, 2025 Resident Creating Document: PRIYANKA CHRISTINA DINORA Has the PT tested + for MRSA If YES, has PT been informed?: No Medical Necessity Reason Pt with a Central, PICC or Fol: No Subjective Review of Systems Seen and examined at the bedside. Patient is since admission. does not have active complaint. Patient reports: No new complaints, Feels better Changes from previous H/P or p: Changes Objective vital signs Vital Sign Date Time Temp Pulse Resp B/P (MAP) Pulse Ox O2 Delivery O2 Flow Rate FiO2 02/22/25 13:00 97.5 74 19 133/71 (91) 99 97.5 02/22/25 08:00 Room Air* 0 21 medications Current Medications Medications Dose Ordered Sig/Eloisa Route Start Time Stop Time Status Last Admin Dose Admin Hydralazine HCl 10 mg Q6HP PRN IV 02/20/25 19:00 02/22/25 05:04 10 MG Aspirin 81 mg DAILY PO 02/21/25 10:00 02/22/25 09:31 81 MG Diagnostic Test (Pha) 1 strip IQ4HR 02/20/25 20:00 02/22/25 11:49 1 STRIP Dextrose 50 ml UD PRN IV 02/20/25 19:00 Ondansetron HCl 4 mg Q4HP PRN IV 02/20/25 19:15 Acetaminophen 650 mg Q6HP PRN PO 02/20/25 19:15 02/22/25 09:29 650 MG Morphine Sulfate 2 mg Q30M PRN IV 02/20/25 19:15 Nitroglycerin 0.4 mg Q5MINP PRN SL 02/20/25 19:15 Insulin Human Regular IQ4HR SC 02/21/25 16:00 02/22/25 11:49 8 UNITS Losartan Potassium 75 mg DAILY PO 02/21/25 16:15 02/22/25 09:30 75 MG Amlodipine Besylate 10 mg DAILY PO 02/22/25 10:00 02/22/25 09:31 10 MG Examination General Appearance: Alert, Oriented X3, Cooperative, No acute distress HEENT: Atraumatic, PERRLA, EOMI, Mucous membrane moist/pink Respiratory: Clear to auscultation, Normal air movement Cardiovascular: Regular rate, Normal S1, Normal S2, No murmurs, no chest wall tenderness Abdominal: Normal bowel sounds, Soft, No tenderness, No hepatospenomegaly, No masses Extremities: No clubbing, No cyanosis, No edema, Normal pulses, No tenderness/swelling Skin: No rashes, No breakdown, No significant lesion Neuro: Normal gait, Normal speech, Strength at 5/5 X4 ext, Normal tone, Sensation intact, Cranial nerves 3-12 NL, Reflexes 2+ Psych/Mental Status: Mental status NL, Mood NL laboratory and microbiology Laboratory Tests 02/21/25 04:20 02/20/25 17:01 Test 02/21/25 04:20 Range/Units Serum Glucose 84 74-106 mg/dL Labs and/or images reviewed: Labs reviewed by me, Image(s) reviewed by me Problem List/Assessment/Plan Problem List/Assessment/Plan Hypertensive urgency Uncontrolled diabetes mellitus with hyperglycemia Diabetic neuropathy Dyslipidemia Hypokalemia Obesity * EKGs shows sinus rhythm with nonspecific ST segment changes * Trop I is normal limits Plan/Recommendation (Case discussed with Dr. Aguero) * We sign off the patient * Discharge plan: Losartan 75 mg daily, amlodipine 10 mg daily * Rest of plan, per primary team Thank you for allowing us to participate in this patient's care. Please call if you have any questions or concerns. Plan discussed with: Patient, Spouse, Other (RN) My Orders My Orders Orders - PRIYANKA CHRISTINA RESDIAKASH Procedure Category Date Status Time Losartan Tablet PHA 02/21/25 In Process (Cozaar Tablet) 16:15 Amlodipine Tablet PHA 02/22/25 In Process (Norvasc Tablet) 10:00 Renin Activity And LAB 02/21/25 In Process Aldosterone 16:16 Dietary Evaluation Review Recommendations by RD: Dietary education by RD, Decrease Calorie Intake Comments: Educated by this RD, provided her "How to Thrive: A Guide for your Journey with Diabetes", Pt was attentive to the instruction, Encouraged her to meet the environmental educator (DCES) for further classes. Expected Outcomes/Goals: Controlled DM, gradual wt loss, Avoid comorbidites. Visit Coding Cardiology RES Date of Service: February 22, 2025 Billing Provider: NIKHIL AGUERO Sr., MD Cardiology Common Codes: [id number] INP/OBS CARE (High) PRIYANKA CHRISTINA RESDIENT February 22, 2025 14:44
[2025-02-22] MEDS: ONDANSETRON HCL 4 MG/2 ML VIAL IV PRN (23:13)
[2025-02-23 01:00] VITALS: BP 138/66; PULSE 96; RESP 17; TEMP 97.8; O2SAT 94
[2025-02-23 05:00] VITALS: BP 152/87; PULSE 103; RESP 18; TEMP 98; O2SAT 95
[2025-02-23 08:00] VITALS: PULSE 98
[2025-02-23] MEDS ORDERED: AMLO1TAB23 PO (08:16)
[2025-02-23] MEDS ORDERED: LOSA100T14 PO (08:16)
[2025-02-23] MEDS ORDERED: LOSA50TA12 PO (08:16)
[2025-02-23] MEDS ORDERED: METF-372 PO (08:16)
--- NOTE | 2025-02-23 08:18 | DVHPN2 ---
Reviewed: Care Plan, H&P, Labs, Medications, Previous Orders, Radiology Changes from previous H/P or p: No Changes Objective Vitals Vital Signs Date Time Temp Pulse Resp B/P (MAP) Pulse Ox O2 Delivery O2 Flow Rate FiO2 02/23/25 05:00 98.0 103 18 152/87 (108) 95 98.0 02/22/25 20:00 Room Air* 0 21 Intake/Output Intake and Output 02/23/25 07:00 Intake Total 1660 ml Balance 1660 ml Intake Oral 1660 ml # Voids 3 # Bowel Movements 1 Medications Current Medications Medications Dose Ordered Sig/Eloisa Route Start Time Stop Time Status Last Admin Dose Admin Hydralazine HCl 10 mg Q6HP PRN IV 02/20/25 19:00 02/22/25 21:13 10 MG Aspirin 81 mg DAILY PO 02/21/25 10:00 02/22/25 09:31 81 MG Diagnostic Test (Pha) 1 strip IQ4HR 02/20/25 20:00 02/23/25 04:28 1 STRIP Dextrose 50 ml UD PRN IV 02/20/25 19:00 Ondansetron HCl 4 mg Q4HP PRN IV 02/20/25 19:15 02/22/25 23:13 4 MG Acetaminophen 650 mg Q6HP PRN PO 02/20/25 19:15 02/22/25 22:17 650 MG Morphine Sulfate 2 mg Q30M PRN IV 02/20/25 19:15 Nitroglycerin 0.4 mg Q5MINP PRN SL 02/20/25 19:15 Insulin Human Regular IQ4HR SC 02/21/25 16:00 02/23/25 04:31 4 UNITS Losartan Potassium 75 mg DAILY PO 02/21/25 16:15 02/22/25 09:30 75 MG Amlodipine Besylate 10 mg DAILY PO 02/22/25 10:00 02/22/25 09:31 10 MG Laboratory Results Laboratory Tests 02/20/25 17:01 02/21/25 04:20 Urinalysis Test 02/20/25 17:35 Urine Color Colorless (Yellow) Urine Clarity Clear (Clear) Urine pH 6.0 (5.0-9.0) Urine Specific [place] 1.024 (1.001-1.035) Urine Protein Trace (Negative) H Urine Ketones Negative (Negative) Urine Blood Trace /uL (Negative) H Urine Nitrite Negative (Negative) Urine Bilirubin Negative (Negative) Urine Urobilinogen Normal mg/dL (Negative) Urine Leukocyte Esterase Negative /uL (Negative) Urine RBC 6 /hpf (0 - 4) Urine Microscopic WBC 1 /HPF (0-5) Urine Squamous Epithelial Cells Few /hpf (<5) Urine Bacteria None seen /hpf (None Seen) Urine Yeast (Budding) Occasional /hpf (None Urine Glucose 4+ mg/dL (Normal) H Labs and/or images reviewed: Labs reviewed by me, Image(s) reviewed by me Assessment/Plan Assessment/Plan Hypertensive emergency: Cardiology consult by Dr. Aguero appreciated placed on amlodipine 10 mg p.o. daily and losartan 75 mg p.o. daily Hypercholesterolemia cholesterol 219, new diagnosis: Start Lipitor Uncontrolled type 2 Diabetes A1c 14, new diagnosis: Insulin aggressive sliding scale, diabetic education CT head negative renal arterial ultrasound result negative echocardiogram result pending urine drug screen negative Noncompliance patient has not seen any Dr recently Social service consult for new PCP Cardiology cleared for discharge Plan discussed with: Patient My Orders Orders - JEFF TATE MD Procedure Category Date Status Time *Rn Handicapped Teacher REFER 02/22/25 Transmitted Referral 10:06 * Tassel Clipper CONS 02/22/25 Transmitted Consult Date of Service: February 23, 2025 Billing Provider: JEFF TATE MD Common Visit Codes: [id number] INP/OBS CARE(HIGH) JEFF TATE MD February 23, 2025 08:18
[2025-02-23] MEDS ORDERED: ATOR-507 PO (08:23)
--- NOTE | 2025-02-23 08:28 | DVHDS2 ---
Discharge Summary Date of Admission February 20, 2025 at 18:52 Date of Discharge: February 23, 2025 Admitting Diagnosis Generalized weakness and high blood pressure Wounds: None Labs/Diagnostic Data: Laboratory Results Test 02/22/25 20:05 02/21/25 18:05 02/21/25 16:26 02/21/25 16:08 POC Glucose 182 mg/dl (70-106) Troponin I High Sensitivity 13 ng/L (</=34) Urine Opiates Screen Neg (NEGATIVE) Urine Fentanyl Screen Neg (NEGATIVE) Urine Barbiturates Screen Neg (NEGATIVE) Urine Phencyclidine Screen Neg (NEGATIVE) Urine Amphetamines Screen Neg (NEGATIVE) Urine Benzodiazepines Screen Neg (NEGATIVE) Urine Cocaine Screen Neg (NEGATIVE) Urine Cannabinoids Screen Neg (NEGATIVE) Magnesium Level 1.9 mg/dL (1.6-2.6) B-Type Natriuretic Peptide 33.46 pg/mL (0-100) Test 02/21/25 04:20 02/20/25 17:35 02/20/25 17:01 Sodium Level 143 mmol/L (136-145) Potassium Level 3.3 mmol/L (3.5-5.1) Chloride Level 104 mmol/L (98-107) Carbon Dioxide Level 30 mmol/L (20-31) Anion Gap 9 (5-15) Blood Urea Nitrogen 16 mg/dL (9-23) Creatinine 0.83 mg/dL (0.550-1.02) Glomerular Filtration Rate Calc 82 mL/min (>90) BUN/Creatinine Ratio 19.3 (10.0-20.0) Serum Glucose 84 mg/dL (74-106) Hemoglobin A1c > 14.0 % A1C (<5.7) Calcium Level 9.1 mg/dL (8.7-10.4) Triglycerides Level 85 mg/dL (< 150) Cholesterol Level 219 mg/dL (< 200) LDL Cholesterol 126 mg/dL (< 100) HDL Cholesterol 79 mg/dL (40-59) Urine Color Colorless (Yellow) Urine Clarity Clear (Clear) Urine pH 6.0 (5.0-9.0) Urine Specific [place] 1.024 (1.001-1.035) Urine Protein Trace (Negative) Urine Ketones Negative (Negative) Urine Blood Trace /uL (Negative) Urine Nitrite Negative (Negative) Urine Bilirubin Negative (Negative) Urine Urobilinogen Normal mg/dL (Negative) Urine Leukocyte Esterase Negative /uL (Negative) Urine RBC 6 /hpf (0 - 4) Urine Microscopic WBC 1 /HPF (0-5) Urine Squamous Epithelial Cells Few /hpf (<5) Urine Bacteria None seen /hpf (None Seen) Urine Yeast (Budding) Occasional /hpf (None Urine Glucose 4+ mg/dL (Normal) White Blood Count 4.6 10^3/uL (4.4-10.8) Red Blood Count 4.61 10^6/uL (4.0-5.20) Hemoglobin 13.7 g/dL (12.2-16.2) Hematocrit 41.6 % (36.0-46.0) Mean Corpuscular Volume 90.2 fL (80.0-100.0) Mean Corpuscular Hemoglobin 29.8 pg (28.0-32.0) Mean Corpuscular Hemoglobin Concent 33.0 g/dL (32.0-36.0) Red Cell Distribution Width 12.8 % (11.8-14.3) Platelet Count 254 10^3/uL (140-450) Mean Platelet Volume 8.8 fL (6.9-10.8) Neutrophils (%) (Auto) 49.6 % (37.0-80.0) Lymphocytes (%) (Auto) 37.8 % (10.0-50.0) Monocytes (%) (Auto) 8.9 % (0.0-12.0) Eosinophils (%) (Auto) 3.0 % (0.0-7.0) Basophils (%) (Auto) 0.7 % (0.0-2.0) Neutrophils # (Auto) 2.3 10 ^3/uL (1.6-8.6) Lymphocytes # (Auto) 1.8 10 ^3/uL (0.4-5.4) Monocytes # (Auto) 0.4 10 ^3/uL (0-1.3) Eosinophils # (Auto) 0.1 10 ^3/uL (0-0.8) Basophils # (Auto) 0 10 ^3/uL (0-0.2) Nucleated Red Blood Cells 0.2 % Thyroid Stimulating Hormone (TSH) 0.97 uIU/mL (0.55-4.78) Other Laboratory Tests 02/21/25 04:20 02/20/25 17:01 Brief Hx & Hospital Course: 59-year-old female not seen any Dr in the recent past came in complaining of generalized weakness and high blood pressure blood pressure systolic was very high in the range of 250. Treated with the amlodipine and losartan seen by cardiology Dr. Aguero. Echocardiogram result pending. Renal arterial ultrasound negative. Patient also found to have uncontrolled diabetes with a A1c 14 with a 560 treated with the aggressive insulin sliding scale patient was educated. Per patient's diabetes use new diagnosis for her. She is not aware in the past that she has diabetes. CT head was negative renal arterial ultrasound negative echocardiogram with the pending urine drug screen is was negative cardiology cleared for discharge. Patient has a high cholesterol 219 placed on Lipitor Prescription for losartan and amlodipine for the high blood pressure metformin for the diabetes and Lipitor for the cholesterol sent to the pharmacy. She will follow up with the discharge clinic in one week and with the new primary Dr in one week Consults/Reason for consult Cardiology Dr. Aguero Operations or Procedures Echocardiogram Renal arterial ultrasound Condition at Discharge: Fair Final Diagnosis/Problems List Hypertensive emergency: Cardiology consult by Dr. Aguero appreciated placed on amlodipine 10 mg p.o. daily and losartan 75 mg p.o. daily Hypercholesterolemia cholesterol 219, new diagnosis: Start Lipitor Uncontrolled type 2 Diabetes A1c 14, new diagnosis: Insulin aggressive sliding scale, diabetic education CT head negative renal arterial ultrasound result negative echocardiogram result pending urine drug screen negative Noncompliance patient has not seen any Dr recently Discharge Disposition: Inpatient Rehab Facility Discharge Instruct/Medications Diet: Consistent carbohydrate, Cardiac 2g Na,low cholest Activity: Light activity Follow Up/Referral: Use medications as prescribed Check blood sugar 3 times a day and take diabetes meds Follow up with discharge clinic in one week Follow up with your new primary Dr in one Medications: Losartan Amlodipine Metformin Lipitor Transmitted to pharmacy Handwritten prescription given for Accu-Chek machine lancets and test strips 39 (Time taken for discharge summary 39 minutes) Discharge Statement: "Patient was advised to return to the ER or call 911 if any headaches, dizziness, shortness of breath, chest pain, abdominal pain, bleeding, fevers, or worsening of medical condition. Patient was counseled about treatment plan, medications, possible side effects, patientverbalized understanding. All questions were answered to the best of my ability. This discharge took greater then 30 minutes in planning, reviewing documentation, counseling the patient, and discussing with other team members." ASSESSMENT ASSESSMENT Hospital Course Improved Assessment Hypertensive emergency: Cardiology consult by Dr. Aguero appreciated placed on amlodipine 10 mg p.o. daily and losartan 75 mg p.o. daily Hypercholesterolemia cholesterol 219, new diagnosis: Start Lipitor Uncontrolled type 2 Diabetes A1c 14, new diagnosis: Insulin aggressive sliding scale, diabetic education CT head negative renal arterial ultrasound result negative echocardiogram result pending urine drug screen negative Noncompliance patient has not seen any Dr recently Date of Service: February 23, 2025 Billing Provider: JEFF TATE MD Common Visit Codes: [id number] INP/OBS CARE(HIGH) JEFF TATE MD February 23, 2025 08:28
[2025-02-23 09:00] VITALS: BP 134/73; PULSE 99; RESP 17; TEMP 97.7; O2SAT 94
[2025-02-23 13:00] VITALS: BP 146/75; PULSE 94; RESP 17; TEMP 98.2; O2SAT 97
[2025-02-23 13:34] VITALS: BP 146/75; PULSE 94; RESP 17; TEMP 36.5; O2SAT 97
--- NOTE | 2025-02-24 12:18 | DVHSR ---
APPROVED REPORT EXAM: Two-dimensional and M-mode echocardiogram with Doppler and color Doppler. Blood Pressure: 140/60 mmHg INDICATION Hypertension RISK FACTORS Obesity: Height: 5'6", Weight: 215 DIMENSIONS LVDd5.4 (3.8-5.7cm)LA (2D)4.2 (1.9-4.0cm)Aortic Root3.5 (2.0-3.7cm) LVDs3.6 (2.5-4.0cm)LA (MM) (1.9-4.0cm)Aortic Cusp Exc1.8 (1.5-2.0cm) EF (%) 60.0 (55-70%)Rt. Atrium4.0 (1.9-4.0cm)Asc. Aorta cm IVSd1.2 (0.7-1.1cm)RV (D) (1.8-2.4cm) PWd1.0 (0.7-1.1cm) Mitral Valve MitralMitral Stenosis E wave0.63m/sMV Mean GR.mmHg A wave1.09m/sMV Peak GR.mmHg E/A ratio0.62D MVAcm2 DECEL [id number] 1/2 [place] Aortic Valve Aortic ValveAortic Stenosis V11.10m/Tamra Mean GR.4mmHg V21.35m/Tamra Peak GR.7mmHg LVOT Diameter1.9 (1.8-2.4cm)Doppler AVA2.31cm2 Pulmonic Valve V20.78m/s Tricuspid Valve TR Velocity2.58m/s [id number] Other Information Technically limited study due to body habitus. Conclusion Sinus rhythm. Left atrial enlargement. Valves are normal. EF of 60% with normal RV function. Dopplers unremarkable. Mild TR. No pericardial effusion masses or vegetations.
[2025-02-28 22:06] LABS: Renin Activity 0.492 ng/mL/hr (.)
--- NOTE | 2025-03-02 14:07 | ECG ---
[facility] Test Date: 2025-02-21 Test Time: 15:50:46 Pat Name: PEEWEE PURCELL Department: [facility] ED Room: [address] [place] [address] 4 Gender: F Post Anesthesia Nurse: OLLIE : [id number] Requested By: MARCUS WALSH Order Number: [id number] Reading MD: Measurements Intervals [place] Rate: 75 P: 83 NC: 149 QRS: 68 QRSD: 91 T: 181 QT: 397 QTc: 444 Interpretive Statements Sinus rhythm Probable left atrial enlargement Nonspecific T abnormalities, lateral leads Please click the below link to view image of tracing.
== END 2025-02-23 14:30 | disposition home or self-care (01) | DRG 199 ==
LOC: ER 16:12 → OVERFLOW 18:52 → ER 18:52 → TELE-EAST 02-21 22:46
PROVIDERS: ADMIT Family Medicine; ATTEND Family Medicine
DX: I16.1 Hypertensive emergency (principal); N17.0 Acute kidney failure with tubular necrosis; E11.40 Type 2 diabetes mellitus with diabetic neuropathy, unspecified; E11.65 Type 2 diabetes mellitus with hyperglycemia; E66.9 Obesity, unspecified; E87.6 Hypokalemia; E78.00 Pure hypercholesterolemia, unspecified; Z68.34 Body mass index [BMI] 34.0-34.9, adult; Z91.199 Patient's noncompliance with other medical treatment and regimen due to unspecified reason; Z90.710 Acquired absence of both cervix and uterus; Z86.32 Personal history of gestational diabetes; Z83.3 Family history of diabetes mellitus; Z82.49 Family history of ischemic heart disease and other diseases of the circulatory system; Z79.899 Other long term (current) drug therapy
CPT/HCPCS: 36415; 70450; 71045; 80048; 80061; 80307; 81001; 82088; 82962; 83036; 83735; 83880; 84244; 84443; 84484; 85025; 93306; 93975; 96360; 96372; 99291; G0378; J1815; J2405